=== PATIENT | female | born 1990 | race Two or more races ===

== ENCOUNTER 2017-08-27 14:30 | Outpatient (CLI) | payer OTHER ==
[2017-08-27] MEDS ORDERED: GADOBUTROL 7.5 MMOL/7.5 ML VIAL ONE (15:45)
[2017-08-27] MEDS ORDERED: GADOBUTROL 7.5 MMOL/7.5 ML VIAL IVP ONE (16:36)
--- NOTE | 2017-08-28 14:56 | MRI Report ---
EXAM: RIGHT HAND MRI WITHOUT AND WITH CONTRAST EXAM DATE: 08/27/2017 05:07 PM. CLINICAL HISTORY: Polyarticular rheumatoid arthritis. Chronic right hand pain. COMPARISON: None. TECHNIQUE: Multiplanar, multisequence T1-weighted and fluid-sensitive sequences of the hand before an d after administration of intravenous contrast. IV contrast: 6 mL Gadavist. Other: None. FINDINGS: Bones and Articular Cartilage: No acute fracture, bone lesions, abnormal marrow edema or enhancement, or erosions. Articular cartilage is within normal limits. Mild synovial enhancement at the first car pometacarpal joint, first through fifth metacarpophalangeal joints. No synovial thickening or irregul arity. Ligaments: The visualized collateral ligaments are intact. Tendons: The flexor and extensor tendons are unremarkable. Musculature: No edema or fatty atrophy. Other: No joint effusions or synovitis. The subcutaneous tissues are unremarkable. No abscess or cell ulitis. IMPRESSION: 1. Mild nonspecific synovial enhancement at the first carpometacarpal and first through fifth metacar pophalangeal joints. No synovial thickening or irregularity. 2. No bone erosions, bone marrow edema, or enhancement. [facility] MUSCULOSKELETAL RADIOLOGY SECTION Referring Provider Line: [phone] SITE ID: [id number]
== END 2017-08-27 14:31 | disposition home or self-care (01) ==
LOC: DI 14:30
PROVIDERS: ATTEND Internal Medicine Rheumatology
DX: M06.09 Rheumatoid arthritis without rheumatoid factor, multiple sites (principal)
CPT/HCPCS: 73220; A9585